=== PATIENT | female | born 1970 | race Caucasian/White ===

== ENCOUNTER 2017-07-08 23:12 | Emergency (ER) | payer BC, OTHER ==
[~2017-07-08] VITALS: Ht 157.5 cm; Wt 75.0 kg
[2017-07-08 23:20] VITALS: Ht 157.5 cm; Wt 75.0 kg
[2017-07-09] MEDS ORDERED: IBUPROFEN 200 MG TAB PO ONE (03:30)
--- NOTE | 2017-07-09 04:58 | RADRPT ---
PROCEDURE: XR Cervical Spine. CLINICAL INDICATION: Pain TECHNIQUE: 3 views of the cervical spine were performed. [facility] COMPARISON: None. FINDINGS: There is reversal of cervical lordosis which may be secondary to spasm or positioning. No fracture o r listhesis is seen. There is mild degenerative changes cervical spine most notable at C5-6 with mod erate anterior osteophytes. No fracture is seen. No prevertebral soft tissue swelling. IMPRESSION: Mild degenerative change and reversal of cervical lordosis. RPTAT: [facility] Physician Shanae Date Time Electronically viewed and signed by Physician Shanae on 07/09/2017 04:58 LE/
--- NOTE | 2017-07-09 04:58 | RADRPT ---
PROCEDURE: XR Cervical Spine. CLINICAL INDICATION: Pain TECHNIQUE: 3 views of the cervical spine were performed. [facility] COMPARISON: None. FINDINGS: There is reversal of cervical lordosis which may be secondary to spasm or positioning. No fracture o r listhesis is seen. There is mild degenerative changes cervical spine most notable at C5-6 with mod erate anterior osteophytes. No fracture is seen. No prevertebral soft tissue swelling. IMPRESSION: Mild degenerative change and reversal of cervical lordosis. RPTAT: [facility] Physician Shanae Date Time Electronically viewed and signed by Physician Shanae on 07/09/2017 04:58 LE/
--- NOTE | 2017-07-09 04:58 | RADRPT ---
PROCEDURE: XR Cervical Spine. CLINICAL INDICATION: Pain TECHNIQUE: 3 views of the cervical spine were performed. [facility] COMPARISON: None. FINDINGS: There is reversal of cervical lordosis which may be secondary to spasm or positioning. No fracture o r listhesis is seen. There is mild degenerative changes cervical spine most notable at C5-6 with mod erate anterior osteophytes. No fracture is seen. No prevertebral soft tissue swelling. IMPRESSION: Mild degenerative change and reversal of cervical lordosis. RPTAT: [facility] Physician Shanae Date Time Electronically viewed and signed by Physician Shanae on 07/09/2017 04:58 LE/
[2017-07-09] MEDS ORDERED: CYCL-319 PO (05:20)
--- NOTE | 2017-07-30 15:59 | ERD ---
ER Documentation Chief Complaint Chief Complaint neck spasms/stiff ness since this AM,no trauma HPI 47-year-old female presents with a chief complaint of neck pain and stiffness times 1 day. Denies trauma. Denies fever, chills, nausea, vomiting, diarrhea, altered mental status, change in diet. No chest pain or shortness of breath. No aggravating or alleviating factors. Has not taken any medication to relieve the symptoms. Patient has no other complaints and describes no other associated manifestations. Nursing notes have been reviewed and are consistent with history given. ROS All systems reviewed and are negative except as per history of present illness. Medications Home Meds Active Scripts Cyclobenzaprine Hcl* (Cyclobenzaprine Hcl*) 10 Mg Tablet, 10 MG PO TID, #15 TAB Prov:BLAYNE GONZALEZ PA-C 07/09/17 Allergies Allergies: Coded Allergies: acetaminophen (Verified Allergy, Unknown, 07/08/17) hydrocodone (Verified Allergy, Unknown, 07/08/17) PMhx/Soc History of Surgery: Yes (c section) Anesthesia Reaction: No Hx Neurological Disorder: No Hx Respiratory Disorders: No Hx Cardiac Disorders: No Hx Psychiatric Problems: Yes (depression) Hx Alcohol Use: No Hx Substance Use: Yes (marijuana) Hx Tobacco Use: No Smoking Status: Never smoker Physical Exam Physical Exam Const: 47-year-old female no acute distress Head: Atraumatic Eyes: Normal Conjunctiva ENT: Normal External Ears, Nose and Mouth. Neck: Decreased left and right rotation secondary to pain. Full range of motion in all other directions..~ No meningismus. Resp: Clear to auscultation bilaterally Cardio: Regular rate and rhythm, no murmurs Abd: Soft, non tender, non distended. Normal bowel sounds Skin: No petechiae or rashes Back: No midline or flank tenderness Ext: No cyanosis, or edema Neur: Awake and alert. Negative Brudzinski's and Kernig's sign. Psych: Normal Mood and Affect Results 24 hrs Current Medications Medications (Trade) Dose Ordered Sig/Shena Route PRN Reason Start Time Stop Time Status Last Admin Dose Admin Ibuprofen (Motrin) 400 mg ONCE ONCE PO 07/09/17 03:30 07/09/17 03:31 DC 07/09/17 03:36 Procedures/MDM 47-year-old female presenting with a chief complaint of neck pain without trauma 1 day. States that she has been undergoing stress. X-ray was taken. It revealed the following: Mild degenerative change and reversal of cervical lordosis. Ibuprofen was administered in the ED with adequate relief of symptoms. Most likely diagnosis is degenerative disc disease versus paraspinal muscle spasm. Patient was given cyclobenzaprine for possible paraspinal muscle spasm. I have no suspicion for meningitis, acute bony pathology or neurovascular compromise. I have spoke with the patient regarding their condition and future management. They have verbally responded that they understand their status and treatment plan. The patients vitals are stable, and their current condition is appropriate for discharge. The patient will be given discharge instructions with return precautions. Departure Diagnosis: Primary Impression: Neck pain Condition: Stable Patient Instructions: Neck Pain, No Trauma Additional Instructions: Follow up with your PCP within the next 1-3 days for a more thorough evaluation and a possible referral to a specialist. Return the the emergency department immediately if symptoms worsen or change. If you have any questions regarding medications, ask your pharmacist or us before you leave. If any adverse reactions occur while taking your medications, discontinue the treatment and return to the emergency department immediately. Take your medications as directed, and complete the entire course of treatment. BLAYNE GONZALEZ PA-C Jul 30, 2017 16:00
== END 2017-07-09 05:45 | disposition home or self-care (01) ==
LOC: FTE 23:12
DX: M54.2 Cervicalgia (principal)
CPT/HCPCS: 72040; 99283; Z7610